=== PATIENT | female | born 1980 | race Caucasian/White ===

== ENCOUNTER 2022-01-26 07:21 | Day surgery (SDC) | payer OTHER ==
[~2022-01-26 07:21] MED LIST: Lactated Ringers 1,000 ML IV SCH; Sodium Chloride 0.9% 10 ML Syringe FLUSH PRN; Sodium Chloride 0.9% 2.5 ML Syringe FLUSH PRN; Sodium Chloride 0.9% 20 ML SDV IV PRN
[2022-01-26] MEDS ORDERED: Lidocaine 2% 5 ML SDV ONE (08:53)
[2022-01-26] MEDS ORDERED: Propofol 200 MG/20 ML SDV ONE (08:54)
[2022-01-26 09:47] VITALS: BP 132/92; PULSE 69
== END 2022-01-26 10:20 | disposition home or self-care (01) ==
LOC: MW.SDS 07:21
PROVIDERS: ATTEND Surgery
DX: Z12.11 Encounter for screening for malignant neoplasm of colon (principal); E66.9 Obesity, unspecified; I10 Essential (primary) hypertension; E04.1 Nontoxic single thyroid nodule; Z80.0 Family history of malignant neoplasm of digestive organs; Z79.899 Other long term (current) drug therapy; Z98.890 Other specified postprocedural states; Z90.49 Acquired absence of other specified parts of digestive tract; Z68.38 Body mass index [BMI] 38.0-38.9, adult
CPT/HCPCS: 45378; 81025; J2704; J7120